=== PATIENT | male | born 1970 ===

== ENCOUNTER 2019-04-30 17:32 | Emergency (ER) | payer SELFPAY ==
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
[2019-05-01 02:09] VITALS: BP 141/55
== END 2019-05-01 01:49 | disposition home or self-care (01) ==
LOC: ED 17:32
DX: S09.90XA Unspecified injury of head, initial encounter (principal); R03.0 Elevated blood-pressure reading, without diagnosis of hypertension; Z88.0 Allergy status to penicillin; Y04.0XXA Assault by unarmed brawl or fight, initial encounter; Y93.89 Activity, other specified; Y92.89 Other specified places as the place of occurrence of the external cause; Y99.8 Other external cause status
CPT/HCPCS: 70450